=== PATIENT | male | born 1980 | race Caucasian/White ===

== ENCOUNTER 2017-05-04 20:28 | Emergency (ER) | payer OTHER ==
[2017-05-04 20:38] VITALS: BP 135/92; PULSE 67; RESP 16; TEMP 98.6; O2SAT 96
[2017-05-04] MEDS ORDERED: LET GEL TOPICAL 1 EA SYR TP ONE ×3 (20:49→20:51)
[2017-05-04] MEDS ORDERED: LIDOCAINE 2% JELLY 5 ML TUBE TP ONE (20:50)
[2017-05-04] MEDS ORDERED: LIDOCAINE 2% JELLY 5 ML TUBE ONE (20:50)
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
== END 2017-05-04 22:12 | disposition home or self-care (01) ==
LOC: CED 20:28
PROC: 0HQ1XZZ Repair Face Skin, External Approach (ICD-10-PCS; principal; 2017-05-04)
DX: S01.81XA Laceration without foreign body of other part of head, initial encounter (principal); S50.811A Abrasion of right forearm, initial encounter; S70.211A Abrasion, right hip, initial encounter; V17.0XXA Pedal cycle driver injured in collision with fixed or stationary object in nontraffic accident, initial encounter; Y92.89 Other specified places as the place of occurrence of the external cause; Y99.8 Other external cause status; Y93.55 Activity, bike riding